=== PATIENT | female | born 1975 ===

== ENCOUNTER 2023-04-19 00:42 | Emergency (ER) | payer MEDICAID, OTHER ==
[~2023-04-19] VITALS: Ht 157.5 cm; Wt 89.5 kg
[2023-04-19 01:21] LABS: Albumin 3.6 g/dL (3.4-5.0); BUN/Creatinine Ratio 11.5 (10.0-20.0); Calcium 8.8 mg/dL (8.5-10.1); Magnesium 2.5 mg/dL (1.6-2.6); Potassium 3.6 mmol/L (3.5-5.1)
[2023-04-19 01:24] LABS: Bilirubin, Total 0.3 mg/dL (0.2-1.0); Total Protein 7.7 g/dL (6.4-8.2)
[2023-04-19 01:27] LABS: Basophils # (auto) 0 10 ^3/uL (0-0.2); Basophils % (auto) 0.3 % (0.0-2.0); Eosinophils # (auto) 0.1 10 ^3/uL (0-0.8); Eosinophils % (auto) 0.9 % (0.0-7.0); Hematocrit 36.1 % (36.0-46.0); Hemoglobin 11.8 g/dL (12.2-16.2); Lymphocytes # (auto) 2.4 10 ^3/uL (0.4-5.4); Lymphocytes % (auto) 28.3 % (10.0-50.0); Mean Corpuscular Hemoglobin 26.8 pg (28.0-32.0); Mean Corpuscular Hgb Conc. 32.8 g/dL (32.0-36.0); Mean Corpuscular Volume 81.7 fL (80.0-100.0); Monocytes # (auto) 0.7 10 ^3/uL (0-1.3); Monocytes % (auto) 7.5 % (0.0-12.0); Neutrophils # (auto) 5.5 10 ^3/uL (1.6-8.6); Red Blood Cells 4.41 10^6/uL (4.0-5.20); Red Cell Distribution Width 13.5 % (11.8-14.3); White Blood Cell 8.7 10^3/uL (4.4-10.8)
[2023-04-19 01:44] LABS: INR 1.01 (0.9-1.15)
[2023-04-19 05:20] VITALS: BP 112/63; TEMP 98
[2023-04-19 06:00] VITALS: PULSE 60; RESP 14; O2SAT 100
== END 2023-04-19 06:05 | disposition home or self-care (01) ==
LOC: ER 00:42
DX: R07.89 Other chest pain (principal)
CPT/HCPCS: 36415; 71045; 80053; 83735; 83880; 84484; 85025; 85610; 85730; 93005

== ENCOUNTER 2023-07-23 18:06 | Emergency (ER) | payer MEDICAID ==
[~2023-07-23] VITALS: Ht 157.5 cm; Wt 80.0 kg
[2023-07-23] MEDS ORDERED: IBUP-1456 PO (23:13)
[2023-07-24 04:54] VITALS: BP 130/67; PULSE 70; RESP 18; TEMP 97; O2SAT 97
== END 2023-07-23 23:50 | disposition home or self-care (01) ==
LOC: ER 18:06
DX: S63.617A Unspecified sprain of left little finger, initial encounter (principal); S63.615A Unspecified sprain of left ring finger, initial encounter; S50.312A Abrasion of left elbow, initial encounter; Z79.1 Long term (current) use of non-steroidal anti-inflammatories (NSAID); W18.39XA Other fall on same level, initial encounter; Y93.89 Activity, other specified; Y92.89 Other specified places as the place of occurrence of the external cause; Y99.8 Other external cause status
CPT/HCPCS: 73070; 73130